=== PATIENT | female | born 1990 | race Caucasian/White ===

== ENCOUNTER 2020-09-04 11:07 | Emergency (ER) | payer OTHER ==
[2020-09-04] MEDS ORDERED: CYCLOBENZAPRINE10 MG PO (14:28)
[2020-09-04] MEDS ORDERED: IBUPROFEN600 MG PO (14:28)
== END 2020-09-04 14:50 | disposition home or self-care (01) ==
LOC: ER1 11:07
DX: S20.01XA Contusion of right breast, initial encounter (principal); M54.2 Cervicalgia; M54.6 Pain in thoracic spine; R51.9 Headache, unspecified; V49.40XA Driver injured in collision with unspecified motor vehicles in traffic accident, initial encounter; Y92.410 Unspecified street and highway as the place of occurrence of the external cause
CPT/HCPCS: 70450; 72125; 72128; 99283

== ENCOUNTER 2020-12-02 07:55 | Emergency (ER) | payer OTHER ==
[~2020-12-02] VITALS: Ht 157.5 cm; Wt 95.3 kg
[~2020-12-02 07:55] MED LIST: CYCLOBENZAPRINE10 MG PO; IBUPROFEN600 MG PO
== END 2020-12-02 15:20 | disposition home or self-care (01) ==
LOC: ER1 07:55
DX: Z23 Encounter for immunization (principal); U07.1 COVID-19; J20.8 Acute bronchitis due to other specified organisms
CPT/HCPCS: 71046; 87081; 87880; 99283; M0243; U0002

== ENCOUNTER 2021-04-02 09:55 | Emergency (ER) | payer OTHER ==
[2021-04-02] MEDS ORDERED: BENZONATATE100 MG PO (14:30)
== END 2021-04-02 14:37 | disposition home or self-care (01) ==
LOC: ER1 09:55
DX: J06.9 Acute upper respiratory infection, unspecified (principal); Z20.822 Contact with and (suspected) exposure to COVID-19
CPT/HCPCS: 71045; 99283; U0002